=== PATIENT | male | born 1995 | race Caucasian/White ===

== ENCOUNTER 2017-01-04 15:16 | Emergency (ER) | payer OTHER ==
[~2017-01-04] VITALS: Wt 95.7 kg
[~2017-01-04 15:16] MED LIST: BACTROBAN OINT22 GM PO; CELEXA20 MG PO; CYCLOBENZAPRINE10 MG PO; FLEXERIL5 MG PO; HYDROCODONE BIT1 T11 PO; KEFLEX500 MG PO; LOFIBRA134 MG PO; MOTRIN800 MG PO; NAPROSYN500 MG PO; NEURONTIN300 MG PO; PEPCID20 MG PO; PREDNISONE50 MG PO; ZANAFLEX4 M2 PO
[2017-01-04 15:20] VITALS: BP 127/64
[2017-01-04] MEDS ORDERED: OXYCODONE5 M1 PO (15:23)
[2017-01-04] MEDS ORDERED: CELEXA10 MG PO (15:24)
[2017-01-04 15:47] LABS: BASO % 0.3 % (0.0-1.0); EOS # 0.1 10*3/uL (0.0-0.4); EOS % 1.3 % (1.0-4.0); HEMATOCRIT 42.6 % (42.0-52.0); HEMOGLOBIN 14.4 g/dl (14.0-18.0); LYMPH # 2.4 10*3/uL (1.3-4.4); LYMPH % 28.3 % (27.0-41.0); MEAN CORPUSCULAR HGB 28.4 pg (27.0-31.0); MEAN CORPUSCULAR HGB CONC 33.8 g/dl (33.0-37.0); MEAN PLATELET VOLUME 10.8 fl (9.6-12.3); MONO # 0.7 10*3/uL (0.1-1.0); NEUT # 5.3 10*3/uL (2.3-7.9); NEUT % 61.8 % (47.0-73.0); PLATELET COUNT AUTOMATED 232 10*3/uL (130-400); RED BLOOD COUNT 5.07 10*6/uL (4.50-5.90); RED CELL DISTRI WIDTH 13.2 % (0-14.5); WHITE BLOOD COUNT 8.6 10*3/uL (4.8-10.8)
[2017-01-04 15:58] LABS: BILIRUBIN 1+ (NEGATIVE); BLOOD NEGATIVE (NEGATIVE); CLARITY SL CLOUDY (CLEAR); COLOR YELLOW (YELLOW); GLUCOSE NEGATIVE (NEGATIVE); KETONE TRACE (NEGATIVE); LEUKO ESTERASE NEGATIVE (NEGATIVE); NITRITE NEGATIVE (NEGATIVE); PH 5.5 (5.0-9.0); PROTEIN NEGATIVE (NEGATIVE); SPECIFIC GRAVITY 1.025 (1.005-1.030); UROBILINOGEN 0.2 E.U./dl (0.2-1.0)
[2017-01-04 16:04] LABS: ALBUMIN 3.9 gm/dl (3.1-4.5); ALKALINE PHOSPHATASE 104 U/L (45-117); BILIRUBIN, TOTAL 0.3 mg/dl (0.2-1.0); BUN 11 mg/dl (7-24); CARBON DIOXIDE 25 mmol/L (21-32); CHLORIDE 107 mmol/L (98-107); EST GLOM FILT AFRICAN AMERICAN > 60 ml/min; GLUCOSE 103 mg/dL (65-99); POTASSIUM 3.7 mmol/L (3.5-5.1); SGOT/AST 20 IU/L (3-35); SGPT/ALT 46 U/L (12-78); SODIUM 140 mmol/L (136-145); TOTAL PROTEIN 7.4 gm/dL (6.4-8.2)
[2017-01-04 16:07] LABS: BACTERIA 2+; EPITHELIAL CELLS 0-2; MUCOUS TRACE; RBC 0-2 rbc/hpf (0-2); URINE REFLEX COMMENT YES (NO)
[2017-01-04 16:15] LABS: URINE AMPHETAMINES < 1000 (1000ng/ml); URINE BARBITURATES < 200 (200ng/ml); URINE COCAINE < 300 (300ng/ml)
[2017-01-04] MEDS ORDERED: MEDROL DOSEPAK4 MG PO (17:03)
[2017-01-04] MEDS ORDERED: ZOFRAN ODT4 MG SL (17:06)
== END 2017-01-04 17:09 | disposition home or self-care (01) ==
LOC: ED 15:16
PROVIDERS: Physician Assistant
DX: M79.1 Myalgia (principal); R11.0 Nausea; Z79.899 Other long term (current) drug therapy

== ENCOUNTER 2019-07-11 13:12 | Inpatient (IN) | payer OTHER ==
[~2019-07-11] VITALS: Ht 182.8 cm; Wt 95.3 kg
[~2019-07-11 13:12] MED LIST changes: +MEDROL DOSEPAK4 MG PO; +OXYCODONE5 M1 PO; +ZOFRAN ODT4 MG SL
[2019-07-11 13:17] VITALS: BP 113/66
--- NOTE | 2019-07-11 14:10 | NUR ---
PT REPORTS TINGLING IN "MY WHOLE RIGHT ARM" AFTER DELTOID INJECTION OF TORADOL. INJECTION WAS PROVIDED IN CORRECT ANATOMICAL LOCATION FAR FROM ANY NERVES. WILL MONITOR THIS COMPLAINT.
[2019-07-11 14:28] LABS: BASO # 0.1 10*3/uL (0.0-0.1); BASO % 0.3 % (0.0-1.0); EOS # 0.1 10*3/uL (0.0-0.4); EOS % 0.8 % (1.0-4.0); HEMATOCRIT 41.4 % (42.0-52.0); HEMOGLOBIN 13.6 g/dl (14.0-18.0); LYMPH # 2.6 10*3/uL (1.3-4.4); LYMPH % 15.2 % (27.0-41.0); MEAN CELL VOLUME 86.4 fl (80.0-94.0); MEAN CORPUSCULAR HGB 28.4 pg (27.0-31.0); MEAN CORPUSCULAR HGB CONC 32.9 g/dl (33.0-37.0); MEAN PLATELET VOLUME 10.6 fl (9.6-12.3); MONO # 1.2 10*3/uL (0.1-1.0); MONO % 6.9 % (3.0-9.0); NEUT # 12.8 10*3/uL (2.3-7.9); NEUT % 75.9 % (47.0-73.0); PLATELET COUNT AUTOMATED 355 10*3/uL (130-400); RED BLOOD COUNT 4.79 10*6/uL (4.50-5.90); RED CELL DISTRI WIDTH 12.9 % (0-14.5); WHITE BLOOD COUNT 16.9 10*3/uL (4.8-10.8)
[2019-07-11 14:39] LABS: ACT PARTIAL THROMBO TIME 30.9 SECONDS (20.0-32.1)
[2019-07-11 14:47] LABS: ALBUMIN 3.6 gm/dl (3.1-4.5); ALKALINE PHOSPHATASE 136 U/L (45-117); BUN 12 mg/dl (7-24); CHLORIDE 103 mmol/L (98-107); CREATININE 0.95 mg/dL (0.70-1.30); LIPASE 57 U/L (73-393); POTASSIUM 3.7 mmol/L (3.5-5.1); SGOT/AST 16 IU/L (3-35); SGPT/ALT 46 U/L (12-78); SODIUM 137 mmol/L (136-145); TOTAL PROTEIN 8.2 gm/dL (6.4-8.2)
[2019-07-11 14:48] LABS: TROPONIN I < 0.015 ng/ml (<0.045)
[2019-07-11 14:54] LABS: BILIRUBIN NEGATIVE (NEGATIVE); BLOOD NEGATIVE (NEGATIVE); CLARITY CLOUDY (CLEAR); COLOR YELLOW (YELLOW); GLUCOSE NEGATIVE (NEGATIVE); KETONE NEGATIVE (NEGATIVE); LEUKO ESTERASE NEGATIVE (NEGATIVE); NITRITE NEGATIVE (NEGATIVE); PH 8.5 (5.0-9.0); SPECIFIC GRAVITY 1.015 (1.005-1.030); UROBILINOGEN 0.2 E.U./dl (0.2-1.0)
--- NOTE | 2019-07-11 16:40 | NUR ---
PT REPORTS MAJORITY OF PAIN HAS RESOLVED. AWAITING CT SCAN RESULTS.
--- NOTE | 2019-07-11 17:54 | NUR ---
PT MASKED UNTIL NEGATIVE AIRFLOW ROOM BECOMES AVAILIBLE.
--- NOTE | 2019-07-11 19:14 | NUR ---
NURSE TO NURSE REPORT GIVEN TO THIS RN.PT RESTING IN ROOM.NO SIGNS DISTRESS NOTED.
--- NOTE | 2019-07-11 19:20 | NUR ---
THIS RN ADVISED BY ARY SHIRLEY, DUE TO MASS FOUND DURING CT TESTING, PT MAY BE OF CONCERN FOR POSSIBLE TB.ARY ARANA HAS HAD PT WEARING MASK PRECAUTION.
--- NOTE | 2019-07-11 19:40 | NUR ---
DR UNGER AT BEDSIDE TO SPEAK WITH PT, ADVISED BY DOCTOR PT SHOULD BE PLACED IN NEGATIVE PRESSURE ROOM FOR ADMISSION UNTIL PT SEEN BY BRAKE SPECIALIST.SIGN PLACED ON PT DOOR.PT AWAITING ADMISSION.
[2019-07-11 19:44] VITALS: BP 122/66
--- NOTE | 2019-07-11 20:19 | NUR ---
ADVISED BY UNIT THEY WILL CALL WHEN PT ROOM IS AVAILABLE.
--- NOTE | 2019-07-11 20:52 | NUR ---
UNIT CALLED AND ADVISED PT ROOM IS AVAILABLE.
[2019-07-11 21:20] VITALS: BP 124/70
--- NOTE | 2019-07-11 21:20 | NUR ---
A 24, admitted to in negative air flow precautions, under the services of AJAY Dave DO with a diagnosis of lung mass. Chief complaint is lower back pain along with shortness of breath. Patient arrived via stretcher from ER. Monitor applied. Initial assessment completed. Vital signs taken and recorded. AJAY DAVE DO notified of admission to the unit. Orders received. See assessment for past medical history, medications and allergies. Patient and/or family oriented to unit. [facility]. Clothing/patient valuable form completed. REGIS TORRES
[2019-07-11 21:25] VITALS: BP 113/65
[2019-07-11] MEDS ORDERED: TRAMADOL HCL50 MG PO (21:40)
[2019-07-11] MEDS ORDERED: ZANAFLEX4 M1 PO (21:41)
[2019-07-11] MEDS ORDERED: SEROQUEL50 MG PO (21:41)
[2019-07-11] MEDS ORDERED: ASPIRIN ADULT L81 M1 PO (21:42)
--- NOTE | 2019-07-11 21:43 | NUR ---
MEDICATION LIST REVIEWED WITH PATIENT.
--- NOTE | 2019-07-11 23:36 | NUR ---
SPOKE WITH DR CHOPRA REGARDING CONSULT ORDER.
[2019-07-12] VITALS: BP 126/68
--- NOTE | 2019-07-12 01:53 | NUR ---
ANSWERING SERVICE NOTIFIED OF CONSULT FOR DR. BEASLEY.
[2019-07-12 07:05] LABS: BASO # 0.1 10*3/uL (0.0-0.1); BASO % 0.4 % (0.0-1.0); EOS # 0.2 10*3/uL (0.0-0.4); EOS % 1.4 % (1.0-4.0); HEMATOCRIT 38.7 % (42.0-52.0); HEMOGLOBIN 12.5 g/dl (14.0-18.0); LYMPH # 2.5 10*3/uL (1.3-4.4); LYMPH % 18.4 % (27.0-41.0); MEAN CELL VOLUME 85.4 fl (80.0-94.0); MEAN CORPUSCULAR HGB 27.6 pg (27.0-31.0); MEAN CORPUSCULAR HGB CONC 32.3 g/dl (33.0-37.0); MEAN PLATELET VOLUME 10.5 fl (9.6-12.3); MONO # 0.9 10*3/uL (0.1-1.0); MONO % 6.5 % (3.0-9.0); NEUT # 9.7 10*3/uL (2.3-7.9); NEUT % 72.5 % (47.0-73.0); PLATELET COUNT AUTOMATED 311 10*3/uL (130-400); RED BLOOD COUNT 4.53 10*6/uL (4.50-5.90); RED CELL DISTRI WIDTH 12.9 % (0-14.5); WHITE BLOOD COUNT 13.3 10*3/uL (4.8-10.8)
[2019-07-12 07:20] LABS: BUN 13 mg/dl (7-24); CHLORIDE 107 mmol/L (98-107); CREATININE 1.08 mg/dL (0.70-1.30); POTASSIUM 3.4 mmol/L (3.5-5.1); SODIUM 140 mmol/L (136-145)
[2019-07-12 08:00] VITALS: BP 133/70
[2019-07-12 12:00] VITALS: BP 127/78
--- NOTE | 2019-07-12 14:11 | NUR ---
PT MEDICATED WITH NORCO FOR C/O HEADACHE.
[2019-07-12 16:00] VITALS: BP 132/78
--- NOTE | 2019-07-12 16:21 | NUR ---
PT MEDICATED WITH ZOFRAN FOR C/O NAUSEA.
[2019-07-12 16:43] LABS: HEMATOCRIT 38.6 % (42.0-52.0); HEMOGLOBIN 12.7 g/dl (14.0-18.0); MEAN CELL VOLUME 85.8 fl (80.0-94.0); MEAN CORPUSCULAR HGB 28.2 pg (27.0-31.0); MEAN CORPUSCULAR HGB CONC 32.9 g/dl (33.0-37.0); MEAN PLATELET VOLUME 10.5 fl (9.6-12.3); PLATELET COUNT AUTOMATED 325 10*3/uL (130-400); RED CELL DISTRI WIDTH 12.8 % (0-14.5); WHITE BLOOD COUNT 14.3 10*3/uL (4.8-10.8)
[2019-07-12 17:07] LABS: BASOPHILS 1 % (0-1); PLATELET SUFFICIENCY NORMAL (NORMAL); TOTAL CELLS COUNTED 100 #CELLS
[2019-07-12 20:00] VITALS: BP 115/74
[2019-07-13] VITALS: BP 109/73
[2019-07-13 06:31] LABS: BASO # 0.1 10*3/uL (0.0-0.1); BASO % 0.5 % (0.0-1.0); EOS # 0.2 10*3/uL (0.0-0.4); EOS % 1.5 % (1.0-4.0); HEMATOCRIT 40.6 % (42.0-52.0); HEMOGLOBIN 12.9 g/dl (14.0-18.0); LYMPH # 2.6 10*3/uL (1.3-4.4); LYMPH % 20.7 % (27.0-41.0); MEAN CELL VOLUME 87.3 fl (80.0-94.0); MEAN CORPUSCULAR HGB 27.7 pg (27.0-31.0); MEAN CORPUSCULAR HGB CONC 31.8 g/dl (33.0-37.0); MEAN PLATELET VOLUME 10.6 fl (9.6-12.3); MONO % 8.2 % (3.0-9.0); NEUT # 8.5 10*3/uL (2.3-7.9); NEUT % 68.2 % (47.0-73.0); PLATELET COUNT AUTOMATED 336 10*3/uL (130-400); RED BLOOD COUNT 4.65 10*6/uL (4.50-5.90); WHITE BLOOD COUNT 12.4 10*3/uL (4.8-10.8)
[2019-07-13 06:48] LABS: BUN 8 mg/dl (7-24); CHLORIDE 109 mmol/L (98-107); CREATININE 1.15 mg/dL (0.70-1.30); POTASSIUM 4.1 mmol/L (3.5-5.1); SODIUM 141 mmol/L (136-145)
[2019-07-13 08:00] VITALS: BP 125/72
[2019-07-13 12:00] VITALS: BP 136/77
[2019-07-13 16:00] VITALS: BP 129/78
--- NOTE | 2019-07-13 18:59 | NUR ---
NORCO GIVEN FOR C/O BACK PAIN. RATES 7/10 ON PAIN SCALE. WILL MONITOR.
[2019-07-13 20:00] VITALS: BP 102/64
[2019-07-14] VITALS: BP 95/55
[2019-07-14 06:37] LABS: BASO # 0.1 10*3/uL (0.0-0.1); BASO % 0.7 % (0.0-1.0); EOS # 0.2 10*3/uL (0.0-0.4); HEMOGLOBIN 12.9 g/dl (14.0-18.0); LYMPH # 3.2 10*3/uL (1.3-4.4); MEAN CELL VOLUME 85.7 fl (80.0-94.0); MEAN CORPUSCULAR HGB 27.6 pg (27.0-31.0); MEAN CORPUSCULAR HGB CONC 32.3 g/dl (33.0-37.0); MEAN PLATELET VOLUME 10.6 fl (9.6-12.3); MONO # 0.9 10*3/uL (0.1-1.0); MONO % 7.6 % (3.0-9.0); NEUT # 7.3 10*3/uL (2.3-7.9); NEUT % 61.6 % (47.0-73.0); PLATELET COUNT AUTOMATED 358 10*3/uL (130-400); RED BLOOD COUNT 4.67 10*6/uL (4.50-5.90); RED CELL DISTRI WIDTH 12.9 % (0-14.5); WHITE BLOOD COUNT 11.9 10*3/uL (4.8-10.8)
[2019-07-14 06:48] LABS: BUN 10 mg/dl (7-24); CHLORIDE 106 mmol/L (98-107); POTASSIUM 3.9 mmol/L (3.5-5.1); SODIUM 141 mmol/L (136-145)
--- NOTE | 2019-07-14 07:54 | NUR ---
24 HR chart check completed.
[2019-07-14 08:00] VITALS: BP 98/55
--- NOTE | 2019-07-14 09:00 | NUR ---
SLEEPING, AWAKENS EASILY. RESPIRATIONS EASY. LUNGS CLEAR. PULSE OX 98% RA. NON-PROD COUGH - AWARE OF NEED FOR SPUTUM SPECIMEN AND CUP REMAINS AT BEDSIDE. BRONCH 07/15 DISCUSSED. CALL LIGHT WITHIN REACH. NO VOICED COMPLAINTS
--- NOTE | 2019-07-14 09:25 | NUR ---
DR LUGO HERE TO ASSESS PATIENT AND DISCUSS PLAN OF CARE
--- NOTE | 2019-07-14 11:54 | NUR ---
REQUESTED AND RECEIVED NORCO PER PRN ORDER FOR COMPLAINTS OF BACK PAIN RATING A 6. CALL LIGHT WITHIN REACH. WILL MONITOR FOR EFFECTIVENESS
[2019-07-14 12:00] VITALS: BP 110/65
--- NOTE | 2019-07-14 13:00 | NUR ---
SITTING IN CHAIR. STATES RELIEF FROM EARLIER MEDS. CALL LIGHT WITHIN REACH. NO FURTHER VOICED COMPLAINTS
[2019-07-14 16:00] VITALS: BP 112/67
[2019-07-14 20:00] VITALS: BP 118/70
[2019-07-15] VITALS (8 sets, daily range): BP systolic 101–140; BP diastolic 62–81
[2019-07-15 06:43] LABS: BASO # 0.1 10*3/uL (0.0-0.1); BASO % 0.5 % (0.0-1.0); EOS # 0.3 10*3/uL (0.0-0.4); EOS % 2.4 % (1.0-4.0); HEMATOCRIT 41.2 % (42.0-52.0); HEMOGLOBIN 13.2 g/dl (14.0-18.0); LYMPH # 3.6 10*3/uL (1.3-4.4); LYMPH % 31.6 % (27.0-41.0); MEAN CELL VOLUME 86.7 fl (80.0-94.0); MEAN CORPUSCULAR HGB 27.8 pg (27.0-31.0); MEAN PLATELET VOLUME 10.6 fl (9.6-12.3); MONO # 0.8 10*3/uL (0.1-1.0); MONO % 7.2 % (3.0-9.0); NEUT # 6.5 10*3/uL (2.3-7.9); NEUT % 57.2 % (47.0-73.0); PLATELET COUNT AUTOMATED 355 10*3/uL (130-400); RED BLOOD COUNT 4.75 10*6/uL (4.50-5.90); WHITE BLOOD COUNT 11.3 10*3/uL (4.8-10.8)
[2019-07-15 06:48] LABS: BUN 10 mg/dl (7-24); CHLORIDE 106 mmol/L (98-107); CREATININE 1.16 mg/dL (0.70-1.30); POTASSIUM 4.1 mmol/L (3.5-5.1); SODIUM 140 mmol/L (136-145)
--- NOTE | 2019-07-15 07:15 | NUR ---
Patient resting quietly with no c/o discomfort. Respirations easy and regular. Vital signs stable. No overt distress. SAMMIE MARCUS
--- NOTE | 2019-07-15 08:36 | NUR ---
24 HR chart check completed.
--- NOTE | 2019-07-15 09:00 | NUR ---
Labor Employment Associate in to talk to patient. Patient states lives at home with girlfriend. There are few steps in the home. Physician: resident clinic Pharmacy: Home health services: none4 Patient's level of ADLs: MINIMAL ASSIST Patient has working utilities: all working DME: cane Follow-up physician's appointment after d/c: will be made by hospitalist nurse director upon discharge Does patient want to access PORTAL?: no Discharge plan discussed with patient, he states he lives at home with girlfriend and her family, he states he uses a cane for ambulation. he states he has been having some difficulty ambulating currently due to hip issues, discussed with him a short term nursing home for rehab and he declined, also discussed VNA with rehab and he also declined, stated his girlfriend is a certified nurses aid and cares for him at home, also educated him that he may need physical therapy also and he declines any VNA, case management will follow. IJEOMA CAMACHO
[2019-07-15 11:55] LABS: BF LYMPHOCYTES 1 %; BF MACROPHAGES 2 %; BF NEUTROPHILS 97 %
--- NOTE | 2019-07-15 13:46 | NUR ---
MEDICATED WITH PO TYLENOL ORDERED PER PT REQUEST FOR C/O HEADACHE.
--- NOTE | 2019-07-15 18:00 | NUR ---
MEDICATION EFFECTIVE FOR HEADACHE.
[2019-07-16] VITALS: BP 130/88
--- NOTE | 2019-07-16 00:29 | NUR ---
24 HR chart check completed.
--- NOTE | 2019-07-16 05:01 | NUR ---
Patient resting quietly with no c/o discomfort. Respirations easy and regular. Vital signs stable. No overt distress. ABISAI LACY
[2019-07-16 06:46] LABS: BASO # 0.1 10*3/uL (0.0-0.1); BASO % 0.5 % (0.0-1.0); EOS # 0.3 10*3/uL (0.0-0.4); EOS % 2.2 % (1.0-4.0); HEMATOCRIT 40.4 % (42.0-52.0); LYMPH # 3.2 10*3/uL (1.3-4.4); LYMPH % 27.8 % (27.0-41.0); MEAN CELL VOLUME 86.3 fl (80.0-94.0); MEAN CORPUSCULAR HGB 27.8 pg (27.0-31.0); MEAN CORPUSCULAR HGB CONC 32.2 g/dl (33.0-37.0); MEAN PLATELET VOLUME 10.4 fl (9.6-12.3); MONO # 0.7 10*3/uL (0.1-1.0); MONO % 6.1 % (3.0-9.0); NEUT # 7.2 10*3/uL (2.3-7.9); NEUT % 62.5 % (47.0-73.0); PLATELET COUNT AUTOMATED 351 10*3/uL (130-400); RED BLOOD COUNT 4.68 10*6/uL (4.50-5.90); RED CELL DISTRI WIDTH 13.2 % (0-14.5); WHITE BLOOD COUNT 11.6 10*3/uL (4.8-10.8)
[2019-07-16 07:10] LABS: BUN 10 mg/dl (7-24); CHLORIDE 108 mmol/L (98-107); CREATININE 1.08 mg/dL (0.70-1.30); POTASSIUM 3.9 mmol/L (3.5-5.1); SODIUM 140 mmol/L (136-145)
[2019-07-16 08:00] VITALS: BP 106/50
--- NOTE | 2019-07-16 09:00 | NUR ---
case management visits with patient, he states he will be returning home when medically stable and denies any home needs
--- NOTE | 2019-07-16 11:24 | NUR ---
pt back from lung biopsy right upper chest puncture site scant blood other lira intact. pt complians of no pain
[2019-07-16 12:00] VITALS: BP 96/53
--- NOTE | 2019-07-16 12:45 | NUR ---
TYLENOL GIVEN D/T PT COMPLAINING OF R SIDE SITE PAIN 12/05 SORE
--- NOTE | 2019-07-16 13:45 | NUR ---
PAIN MED EFFECTIVE PT SLEEPING RESTING COMFORTABLY PAIN 0/10
--- NOTE | 2019-07-16 13:50 | NUR ---
Dr Sanders notified of the inability to perform cytology sample from ct guided biopsy d/t lack of fluid in sample. Fungal was also not able to be obtained.
[2019-07-16 16:00] VITALS: BP 119/65
[2019-07-16 18:07] LABS: ACID FAST SPEC PROCESSING Concentration (.)
[2019-07-16 18:07] LABS: TB1 Ag VALUE 0.03 IU/mL (.)
[2019-07-16 18:07] LABS: TB1 Ag VALUE 0.03 IU/mL (.)
[2019-07-16 20:00] VITALS: BP 108/62
--- NOTE | 2019-07-16 22:10 | NUR ---
PATIENT GIVEN NORCO FOR POST OP CT GUIDED BIOPSY 01/04.
[2019-07-17] VITALS: BP 119/70
[2019-07-17 06:45] LABS: BASO # 0.1 10*3/uL (0.0-0.1); BASO % 0.5 % (0.0-1.0); EOS # 0.3 10*3/uL (0.0-0.4); EOS % 2.1 % (1.0-4.0); HEMOGLOBIN 13.1 g/dl (14.0-18.0); LYMPH # 2.8 10*3/uL (1.3-4.4); LYMPH % 22.2 % (27.0-41.0); MEAN CELL VOLUME 85.6 fl (80.0-94.0); MEAN CORPUSCULAR HGB 27.3 pg (27.0-31.0); MEAN PLATELET VOLUME 10.6 fl (9.6-12.3); MONO # 0.8 10*3/uL (0.1-1.0); MONO % 6.7 % (3.0-9.0); NEUT # 8.5 10*3/uL (2.3-7.9); NEUT % 67.6 % (47.0-73.0); PLATELET COUNT AUTOMATED 354 10*3/uL (130-400); RED BLOOD COUNT 4.79 10*6/uL (4.50-5.90); RED CELL DISTRI WIDTH 13.1 % (0-14.5); WHITE BLOOD COUNT 12.5 10*3/uL (4.8-10.8)
[2019-07-17 07:07] LABS: BUN 15 mg/dl (7-24); CHLORIDE 105 mmol/L (98-107); CREATININE 0.98 mg/dL (0.70-1.30); POTASSIUM 3.9 mmol/L (3.5-5.1); SODIUM 136 mmol/L (136-145)
[2019-07-17 08:00] VITALS: BP 128/60
--- NOTE | 2019-07-17 08:52 | NUR ---
NORCO 5/325 MG GIVEN FOR C/O PAIN TO RIGHT CHEST/BACK,02/04.
--- NOTE | 2019-07-17 09:00 | NUR ---
case management visits with patient, he will return home when medically stable and denies any home needs
--- NOTE | 2019-07-17 11:30 | NUR ---
SPOKE TO DR CUBA REGARDING PLAN OF CARE. PT C/O THAT "NO ONE IS TELLING HIM WHARS GOING ON". PER DR CUBA, AWAITING CXR RESULTS FROM THIS AM.WILL ROUND AND SPEAK TO PT AND SIGNIFICANT OTHER AT BEDSIDE REGARDING PLAN OF CARE. EDUCATION PROVIDED TO PT REGARDING THIS AND DAANIA SMOKING CESSATION.
[2019-07-17 12:00] VITALS: BP 122/76
--- NOTE | 2019-07-17 13:57 | NUR ---
Patient resting quietly with no c/o discomfort. Respirations easy and regular. Vital signs stable. No overt distress.Stable at this time.Significant other at bedside.Call light in reach. ANGELO RAZO
[2019-07-17 14:11] LABS: ACID FAST SPEC PROCESSING Tissue Grinding (.)
[2019-07-17] MEDS ORDERED: AUGMENTIN 875875 MG PO (14:49)
[2019-07-17 16:00] VITALS: BP 128/86
--- NOTE | 2019-07-17 16:00 | NUR ---
PT C/O "DR'S NOT COMMUNICATING WITH EACH OTHER " DR CUBA HAD ROUNDED AND SPOKE WITH PT. PER PT HE STATES "THE DR TOLD ME I WOULD GET TO GO HOME TODAY". PT ASKED TO SPEAK WITH EXTRA HAND AT THIS TIME. SANDY NOTIFIED.
--- NOTE | 2019-07-17 16:49 | NUR ---
DR LUGO WAS IN AND SPOKE TO PT AND FAMILY REGARDING PLAN OF CARE.
--- NOTE | 2019-07-17 18:21 | NUR ---
NORCO 5/325 MG GIVEN FOR C/O PAIN TO RIGHT CHEST/BACK,03/06.
[2019-07-17 20:00] VITALS: BP 121/74
[2019-07-18] VITALS (7 sets, daily range): BP systolic 64–126; BP diastolic 48–69
[2019-07-18 06:36] LABS: BASO # 0.1 10*3/uL (0.0-0.1); BASO % 0.4 % (0.0-1.0); EOS # 0.2 10*3/uL (0.0-0.4); EOS % 1.8 % (1.0-4.0); HEMATOCRIT 41.6 % (42.0-52.0); HEMOGLOBIN 13.6 g/dl (14.0-18.0); LYMPH # 2.8 10*3/uL (1.3-4.4); LYMPH % 23.2 % (27.0-41.0); MEAN CELL VOLUME 85.1 fl (80.0-94.0); MEAN CORPUSCULAR HGB 27.8 pg (27.0-31.0); MEAN CORPUSCULAR HGB CONC 32.7 g/dl (33.0-37.0); MEAN PLATELET VOLUME 10.5 fl (9.6-12.3); MONO # 0.8 10*3/uL (0.1-1.0); MONO % 6.5 % (3.0-9.0); NEUT % 67.1 % (47.0-73.0); PLATELET COUNT AUTOMATED 345 10*3/uL (130-400); RED BLOOD COUNT 4.89 10*6/uL (4.50-5.90); RED CELL DISTRI WIDTH 13.1 % (0-14.5); WHITE BLOOD COUNT 11.9 10*3/uL (4.8-10.8)
[2019-07-18 06:41] LABS: BUN 18 mg/dl (7-24); CHLORIDE 105 mmol/L (98-107); POTASSIUM 3.8 mmol/L (3.5-5.1); SODIUM 137 mmol/L (136-145)
--- NOTE | 2019-07-18 09:00 | NUR ---
case management visits with patient, he denies any home needs, possibly discharge to home today
--- NOTE | 2019-07-18 09:00 | NUR ---
SPOKE W/DR. CUBA RE CXR RESULTS AND DR. CHOPRA STATES PT CAN BE D/C TODAY AND PT REQUESTING SCRIPT FOR AUBURN.
--- NOTE | 2019-07-18 09:12 | NUR ---
PT MEDICATED W/NORCO FOR C/O RIGHT SIDE LUNG PAIN S/P BRONCH 10/07.
--- NOTE | 2019-07-18 10:10 | NUR ---
PT STANDING IN DOORWAY. C/O DIZZINESS, PROFUSELY DIAPHORETIC, PALE, AND EXPECTORATING BLOODY SPUTUM W/NOSE BLEED. PT ASSISTED TO RECLINER CHAIR. VS 64/48, 75, 97.9, 93% RA, BS 83. DR. ROSALES ON FLOOR AND NOTIFIED. STAT PORTABLE CXR ORDERED.
--- NOTE | 2019-07-18 10:20 | NUR ---
PT'S REPEAT BP 112/60. PT COLOR RETURNING AND DIZZINESS SUBSIDING.
--- NOTE | 2019-07-18 12:00 | NUR ---
DR. CHOPRA NOTIFIED OF PT'S REPEAT CXR AND PREVIOUS EPISODE. MONITOR AND DO NOT SEND HOME TODAY.
--- NOTE | 2019-07-18 12:19 | NUR ---
DR. ROSALES NOTIFIED DR. CHOPRA STATED NOT TO D/C PT TODAY.
[2019-07-19] VITALS: BP 107/60
[2019-07-19 06:50] LABS: BASO # 0.1 10*3/uL (0.0-0.1); BASO % 0.5 % (0.0-1.0); EOS # 0.4 10*3/uL (0.0-0.4); EOS % 3.1 % (1.0-4.0); HEMATOCRIT 40.8 % (42.0-52.0); HEMOGLOBIN 13.3 g/dl (14.0-18.0); LYMPH # 2.9 10*3/uL (1.3-4.4); MEAN CELL VOLUME 85.2 fl (80.0-94.0); MEAN CORPUSCULAR HGB 27.8 pg (27.0-31.0); MEAN CORPUSCULAR HGB CONC 32.6 g/dl (33.0-37.0); MEAN PLATELET VOLUME 10.3 fl (9.6-12.3); MONO # 0.7 10*3/uL (0.1-1.0); MONO % 5.5 % (3.0-9.0); NEUT # 8.4 10*3/uL (2.3-7.9); NEUT % 66.3 % (47.0-73.0); PLATELET COUNT AUTOMATED 317 10*3/uL (130-400); RED BLOOD COUNT 4.79 10*6/uL (4.50-5.90); RED CELL DISTRI WIDTH 13.1 % (0-14.5); WHITE BLOOD COUNT 12.6 10*3/uL (4.8-10.8)
[2019-07-19 07:26] LABS: BUN 18 mg/dl (7-24); CHLORIDE 106 mmol/L (98-107); CREATININE 1.01 mg/dL (0.70-1.30); POTASSIUM 3.9 mmol/L (3.5-5.1); SODIUM 137 mmol/L (136-145)
[2019-07-19 08:00] VITALS: BP 130/74
--- NOTE | 2019-07-19 08:57 | NUR ---
Shift chart check completed.
--- NOTE | 2019-07-19 09:00 | NUR ---
PT OFF FLOOR TO RADIOLOGY FOR CHEST XRAY
--- NOTE | 2019-07-19 09:00 | NUR ---
case management visits with patient, he will return home today and denies any hoem needs
--- NOTE | 2019-07-19 09:10 | NUR ---
PT BACK FROM RADIOLOGY. RESTING IN BED. CALL LIGHT WITHIN REACH.
--- NOTE | 2019-07-19 10:24 | NUR ---
SPOKE WITH DR CHOPRA REGARDING CHEST XRAY RESULTS. STATED TO LET THE REST OF THE TEAM KNOW PATIENT WAS ABLE TO BE DISCHARGED TODAY. ALSO TO FOLLOW UP WITH HIM IN 2 WEEKS.
--- NOTE | 2019-07-19 11:12 | NUR ---
The Discharge Plan/Instructions have been completed.
--- NOTE | 2019-07-19 11:12 | NUR ---
Discharge instructions reviewed with patient/family. Patient receptive and verbalizes understanding. Follow-up care arranged. Written instructions given to patient/family. MARTITA HORN
== END 2019-07-19 11:12 | disposition home or self-care (01) | DRG 166 ==
LOC: ED 13:12 → EDHOLD 19:32 → 4E 19:32
PROVIDERS: Family Medicine; Internal Medicine; Internal Medicine Critical Care Medicine; Physician Assistant; Student in an Organized Health Care Education/Training Program; ADMIT Internal Medicine
PROC: 0B9C8ZX Drainage of Right Upper Lung Lobe, Via Natural or Artificial Opening Endoscopic, Diagnostic (ICD-10-PCS; principal; 2019-07-15)
PROC: 0BBC8ZX Excision of Right Upper Lung Lobe, Via Natural or Artificial Opening Endoscopic, Diagnostic (ICD-10-PCS; 2019-07-16)
DX: J98.4 Other disorders of lung (principal); J85.1 Abscess of lung with pneumonia; E44.1 Mild protein-calorie malnutrition; R91.8 Other nonspecific abnormal finding of lung field; E66.3 Overweight; D72.829 Elevated white blood cell count, unspecified; D64.9 Anemia, unspecified; R73.9 Hyperglycemia, unspecified; E83.41 Hypermagnesemia; R74.8 Abnormal levels of other serum enzymes; G80.9 Cerebral palsy, unspecified; G62.9 Polyneuropathy, unspecified; F41.9 Anxiety disorder, unspecified; F32.9 Major depressive disorder, single episode, unspecified; F12.90 Cannabis use, unspecified, uncomplicated; E87.6 Hypokalemia; G89.29 Other chronic pain; M51.36 Other intervertebral disc degeneration, lumbar region; I95.9 Hypotension, unspecified; A15.0 Tuberculosis of lung; E66.9 Obesity, unspecified; J95.811 Postprocedural pneumothorax; R07.1 Chest pain on breathing; Z79.899 Other long term (current) drug therapy; Z79.82 Long term (current) use of aspirin; Z68.28 Body mass index [BMI] 28.0-28.9, adult

== ENCOUNTER 2021-02-21 16:55 | Emergency (ER) | payer OTHER ==
[~2021-02-21] VITALS: Ht 182.8 cm; Wt 88.9 kg
[~2021-02-21 16:55] MED LIST changes: +ASPIRIN ADULT L81 M1 PO; +AUGMENTIN 875875 MG PO; +SEROQUEL50 MG PO; +TRAMADOL HCL50 MG PO; +ZANAFLEX4 M1 PO
[2021-02-21 17:00] VITALS: BP 146/75
[2021-02-21] MEDS ORDERED: Motrin,Rufen800 MG PO (18:29)
== END 2021-02-21 18:28 | disposition home or self-care (01) ==
LOC: ED 16:55
DX: S86.911A Strain of unspecified muscle(s) and tendon(s) at lower leg level, right leg, initial encounter (principal); M17.11 Unilateral primary osteoarthritis, right knee; Z79.2 Long term (current) use of antibiotics; Z79.899 Other long term (current) drug therapy; Z79.82 Long term (current) use of aspirin; Z98.890 Other specified postprocedural states; X50.1XXA Overexertion from prolonged static or awkward postures, initial encounter; Y93.89 Activity, other specified; Y92.89 Other specified places as the place of occurrence of the external cause; Y99.8 Other external cause status

== ENCOUNTER 2021-07-05 03:47 | Emergency (ER) | payer OTHER ==
[~2021-07-05 03:47] MED LIST changes: +Motrin,Rufen800 MG PO
[2021-07-05 03:55] VITALS: BP 132/88
[2021-07-05 04:27] LABS: BASO # 0.1 10*3/uL (0.0-0.1); BASO % 0.6 % (0.0-1.0); EOS # 0.3 10*3/uL (0.0-0.4); EOS % 2.6 % (1.0-4.0); HEMATOCRIT 41.1 % (42.0-52.0); LYMPH # 3.5 10*3/uL (1.3-4.4); LYMPH % 35.1 % (27.0-41.0); MEAN CELL VOLUME 87.1 fl (80.0-94.0); MEAN CORPUSCULAR HGB 28.6 pg (27.0-31.0); MEAN CORPUSCULAR HGB CONC 32.8 g/dl (33.0-37.0); MEAN PLATELET VOLUME 10.7 fl (9.6-12.3); MONO # 0.7 10*3/uL (0.1-1.0); MONO % 6.6 % (3.0-9.0); NEUT # 5.5 10*3/uL (2.3-7.9); NEUT % 54.6 % (47.0-73.0); PLATELET COUNT AUTOMATED 241 10*3/uL (130-400); RED BLOOD COUNT 4.72 10*6/uL (4.50-5.90); RED CELL DISTRI WIDTH 13.5 % (0-14.5); WHITE BLOOD COUNT 10.1 10*3/uL (4.8-10.8)
[2021-07-05 04:44] LABS: ALBUMIN 3.6 gm/dl (3.1-4.5); ALKALINE PHOSPHATASE 96 U/L (45-117); BUN 15 mg/dl (7-24); CHLORIDE 111 mmol/L (98-107); CREATININE 0.92 mg/dL (0.70-1.30); POTASSIUM 3.8 mmol/L (3.5-5.1); SGOT/AST 13 IU/L (3-35); SGPT/ALT 23 U/L (12-78); SODIUM 143 mmol/L (136-145)
== END 2021-07-05 05:49 | disposition home or self-care (01) ==
LOC: ED 03:47
PROVIDERS: Internal Medicine
DX: R11.0 Nausea (principal); R42 Dizziness and giddiness; R25.1 Tremor, unspecified; Z79.2 Long term (current) use of antibiotics; Z79.899 Other long term (current) drug therapy; Z79.82 Long term (current) use of aspirin; Z98.890 Other specified postprocedural states; Z86.69 Personal history of other diseases of the nervous system and sense organs

== ENCOUNTER 2021-08-30 00:01 | Emergency (ER) | payer OTHER ==
[~2021-08-30] VITALS: Ht 182.8 cm; Wt 82.1 kg
[2021-08-30 00:03] VITALS: BP 120/70
== END 2021-08-30 02:00 | disposition home or self-care (01) ==
LOC: ED 00:01
DX: F41.9 Anxiety disorder, unspecified (principal)

== ENCOUNTER 2021-09-12 02:29 | Emergency (ER) | payer OTHER ==
[~2021-09-12] VITALS: Ht 182.8 cm; Wt 82.1 kg
[2021-09-12 03:25] VITALS: BP 103/61
== END 2021-09-12 04:05 | disposition home or self-care (01) ==
LOC: ED 02:29
DX: F41.9 Anxiety disorder, unspecified (principal); F32.9 Major depressive disorder, single episode, unspecified

== ENCOUNTER 2021-09-16 18:56 | Emergency (ER) | payer OTHER ==
[~2021-09-16] VITALS: Ht 182.8 cm; Wt 81.6 kg
[2021-09-16 19:27] LABS: BASO # 0.1 10*3/uL (0.0-0.1); BASO % 0.6 % (0.0-1.0); EOS # 0.3 10*3/uL (0.0-0.4); EOS % 3.1 % (1.0-4.0); HEMATOCRIT 38.9 % (42.0-52.0); LYMPH # 2.4 10*3/uL (1.3-4.4); MEAN CELL VOLUME 86.8 fl (80.0-94.0); MEAN CORPUSCULAR HGB 29.5 pg (27.0-31.0); MEAN CORPUSCULAR HGB CONC 33.9 g/dl (33.0-37.0); MEAN PLATELET VOLUME 10.5 fl (9.6-12.3); MONO # 0.6 10*3/uL (0.1-1.0); MONO % 7.5 % (3.0-9.0); NEUT % 59.4 % (47.0-73.0); PLATELET COUNT AUTOMATED 228 10*3/uL (130-400); RED BLOOD COUNT 4.48 10*6/uL (4.50-5.90); RED CELL DISTRI WIDTH 13.4 % (0-14.5); WHITE BLOOD COUNT 8.4 10*3/uL (4.8-10.8)
[2021-09-16 19:42] LABS: ALBUMIN 3.6 gm/dl (3.1-4.5); ALKALINE PHOSPHATASE 77 U/L (45-117); BUN 13 mg/dl (7-24); CHLORIDE 108 mmol/L (98-107); CPK 97 U/L (39-308); CREATININE 0.85 mg/dL (0.70-1.30); ETHYL ALCOHOL < 3.0 mg/dl (<3); LIPASE 64 U/L (73-393); POTASSIUM 3.7 mmol/L (3.5-5.1); SGOT/AST 13 IU/L (3-35); SGPT/ALT 23 U/L (12-78); SODIUM 139 mmol/L (136-145); TOTAL PROTEIN 6.8 gm/dL (6.4-8.2)
[2021-09-16 20:29] VITALS: BP 108/59
== END 2021-09-16 20:46 | disposition home or self-care (01) ==
LOC: ED 18:56
PROVIDERS: Emergency Medicine
DX: R55 Syncope and collapse (principal); F41.9 Anxiety disorder, unspecified; Z98.890 Other specified postprocedural states

== ENCOUNTER 2021-11-04 23:46 | Emergency (ER) | payer OTHER ==
[2021-11-04 23:59] VITALS: BP 128/82
== END 2021-11-05 04:08 | disposition home or self-care (01) ==
LOC: ED 23:46
DX: F41.9 Anxiety disorder, unspecified (principal)

== ENCOUNTER 2021-11-05 21:16 | Emergency (ER) | payer OTHER ==
[~2021-11-05] VITALS: Ht 182.8 cm; Wt 81.6 kg
[2021-11-05 21:49] VITALS: BP 136/40
== END 2021-11-05 23:07 | disposition home or self-care (01) ==
LOC: ED 21:16
DX: R10.9 Unspecified abdominal pain (principal); R51.9 Headache, unspecified; F41.9 Anxiety disorder, unspecified

== ENCOUNTER 2022-01-24 05:19 | Emergency (ER) | payer OTHER ==
[~2022-01-24] VITALS: Ht 182.8 cm; Wt 83.0 kg
[2022-01-24 05:20] VITALS: BP 98/53
== END 2022-01-24 07:04 | disposition home or self-care (01) ==
LOC: ED 05:19
DX: F41.9 Anxiety disorder, unspecified (principal); Z98.890 Other specified postprocedural states

== ENCOUNTER 2022-06-03 12:54 | Emergency (ER) | payer OTHER ==
[~2022-06-03] VITALS: Ht 182.8 cm; Wt 78.0 kg
[2022-06-03 13:07] VITALS: BP 119/74
== END 2022-06-03 15:45 | disposition left against medical advice (07) ==
LOC: ED 12:54
DX: M25.512 Pain in left shoulder (principal); Z53.21 Procedure and treatment not carried out due to patient leaving prior to being seen by health care provider; V19.88XA Pedal cyclist (driver) (passenger) injured in other specified transport accidents, initial encounter; Y93.55 Activity, bike riding; Y92.238 Other place in hospital as the place of occurrence of the external cause; Y99.9 Unspecified external cause status

== ENCOUNTER 2022-07-10 04:01 | Emergency (ER) | payer OTHER ==
[~2022-07-10] VITALS: Ht 182.8 cm; Wt 76.7 kg
[2022-07-10 04:04] VITALS: BP 108/62
== END 2022-07-10 04:52 | disposition home or self-care (01) ==
LOC: ED 04:01
DX: F41.9 Anxiety disorder, unspecified (principal); Z98.890 Other specified postprocedural states

== ENCOUNTER 2022-11-23 18:00 | Emergency (ER) | payer OTHER ==
[2022-11-23 18:25] LABS: BASO % 0.5 % (0.0-1.0); EOS # 0.3 10*3/uL (0.0-0.4); EOS % 3.2 % (1.0-4.0); HEMATOCRIT 42.7 % (42.0-52.0); LYMPH # 2.8 10*3/uL (1.3-4.4); LYMPH % 36.6 % (27.0-41.0); MEAN CELL VOLUME 87.1 fl (80.0-94.0); MEAN CORPUSCULAR HGB CONC 33.3 g/dl (33.0-37.0); MEAN PLATELET VOLUME 10.6 fl (9.6-12.3); MONO # 0.6 10*3/uL (0.1-1.0); MONO % 7.7 % (3.0-9.0); NEUT % 51.9 % (47.0-73.0); PLATELET COUNT AUTOMATED 213 10*3/uL (130-400); RED CELL DISTRI WIDTH 13.2 % (0-14.5); WHITE BLOOD COUNT 7.8 10*3/uL (4.8-10.8)
[2022-11-23 18:36] LABS: ACT PARTIAL THROMBO TIME 29.9 SECONDS (20.0-32.1); INTERNATIONAL NORM RATIO 1.2 (2.0-3.5)
[2022-11-23 18:47] LABS: ALKALINE PHOSPHATASE 83 U/L (46-116); BUN 9 mg/dl (9-23); CHLORIDE 106 mmol/L (98-107); LIPASE 27 U/L (12-53); POTASSIUM 3.7 mmol/L (3.4-5.1); SGPT/ALT 11 U/L (10-49); TOTAL PROTEIN 7.3 gm/dL (6.0-8.0)
[2022-11-23] MEDS ORDERED: METHOCARBAMOL500 M1 PO (19:47)
[2022-11-23] MEDS ORDERED: NAPROXEN250 MG PO (19:47)
== END 2022-11-23 20:00 | disposition home or self-care (01) ==
LOC: ED 18:00
PROVIDERS: Emergency Medicine
DX: G80.9 Cerebral palsy, unspecified (principal); F32.A Depression, unspecified; F41.9 Anxiety disorder, unspecified; F12.90 Cannabis use, unspecified, uncomplicated; Z98.890 Other specified postprocedural states

== ENCOUNTER 2022-11-24 21:46 | Emergency (ER) | payer OTHER ==
[~2022-11-24] VITALS: Ht 182.8 cm; Wt 81.6 kg
[~2022-11-24 21:46] MED LIST changes: +METHOCARBAMOL500 M1 PO; +NAPROXEN250 MG PO
[2022-11-24 21:48] VITALS: BP 94/55
[2022-11-25] MEDS ORDERED: LORAZEPAM0.5 M1 PO (00:08)
== END 2022-11-25 00:14 | disposition home or self-care (01) ==
LOC: ED 21:46
DX: S09.90XA Unspecified injury of head, initial encounter (principal); F41.0 Panic disorder [episodic paroxysmal anxiety]; M62.838 Other muscle spasm; F17.200 Nicotine dependence, unspecified, uncomplicated; Z98.890 Other specified postprocedural states; W18.39XA Other fall on same level, initial encounter; Y93.89 Activity, other specified; Y92.89 Other specified places as the place of occurrence of the external cause; Y99.8 Other external cause status

== ENCOUNTER 2023-03-08 02:15 | Emergency (ER) | payer OTHER ==
[~2023-03-08] VITALS: Ht 182.8 cm; Wt 74.8 kg
[~2023-03-08 02:15] MED LIST changes: +LORAZEPAM0.5 M1 PO
[2023-03-08 02:55] LABS: BASO # 0.1 10*3/uL (0.0-0.1); BASO % 0.5 % (0.0-1.0); EOS # 0.4 10*3/uL (0.0-0.4); EOS % 3.1 % (1.0-4.0); HEMATOCRIT 43.9 % (42.0-52.0); LYMPH # 3.3 10*3/uL (1.3-4.4); LYMPH % 25.1 % (27.0-41.0); MEAN CELL VOLUME 87.6 fl (80.0-94.0); MEAN CORPUSCULAR HGB 29.3 pg (27.0-31.0); MEAN CORPUSCULAR HGB CONC 33.5 g/dl (33.0-37.0); MEAN PLATELET VOLUME 10.2 fl (9.6-12.3); MONO % 7.5 % (3.0-9.0); NEUT # 8.4 10*3/uL (2.3-7.9); NEUT % 63.3 % (47.0-73.0); PLATELET COUNT AUTOMATED 232 10*3/uL (130-400); RED BLOOD COUNT 5.01 10*6/uL (4.50-5.90); RED CELL DISTRI WIDTH 13.3 % (0-14.5); WHITE BLOOD COUNT 13.2 10*3/uL (4.8-10.8)
[2023-03-08 03:04] LABS: BILIRUBIN Negative (Negative); BLOOD Negative (Negative); CLARITY Clear (Clear); COLOR Yellow (Yellow); GLUCOSE Negative (Negative); KETONE Negative (Negative); LEUKO ESTERASE Negative (Negative); NITRITE Negative (Negative); PH 5.5 (4.5-8.0)
[2023-03-08 03:07] LABS: ACT PARTIAL THROMBO TIME 27.5 SECONDS (20.0-32.1)
[2023-03-08 03:14] LABS: URINE AMPHETAMINES Negative (1000ng/ml); URINE BARBITURATES Negative (200ng/ml); URINE BENZODIAZEPINES Negative (200ng/ml); URINE CANNABINOIDS (THC) Positive (50ng/ml); URINE COCAINE Negative (300ng/ml); URINE METHADONE Negative (300ng/ml); URINE OPIATES Negative (300ng/ml); URINE PHENCYCLIDINE Negative (25ng/ml)
[2023-03-08 03:15] LABS: ALKALINE PHOSPHATASE 102 U/L (46-116); BUN 14 mg/dl (9-23); CHLORIDE 108 mmol/L (98-107); CPK 143 U/L (34-171); LIPASE 29 U/L (12-53); POTASSIUM 3.9 mmol/L (3.4-5.1); SGPT/ALT 15 U/L (10-49); TOTAL PROTEIN 7.5 gm/dL (6.0-8.0)
[2023-03-08 08:35] VITALS: BP 121/85
== END 2023-03-08 10:09 | disposition home or self-care (01) ==
LOC: ED 02:15
PROVIDERS: Internal Medicine
DX: F43.20 Adjustment disorder, unspecified (principal); F41.9 Anxiety disorder, unspecified; Z79.899 Other long term (current) drug therapy; Z79.82 Long term (current) use of aspirin; Z98.890 Other specified postprocedural states

== ENCOUNTER 2023-05-03 04:20 | Emergency (ER) | payer OTHER ==
[~2023-05-03] VITALS: Ht 182.8 cm; Wt 74.8 kg
[2023-05-03] MEDS ORDERED: BUSPAR5 MG PO (04:24)
[2023-05-03] MEDS ORDERED: FLUOXETINE HYDR20 M1 PO (04:25)
[2023-05-03 05:23] LABS: ACT PARTIAL THROMBO TIME 28.2 SECONDS (20.0-32.1)
[2023-05-03 05:26] LABS: ALKALINE PHOSPHATASE 73 U/L (46-116); BUN 16 mg/dl (9-23); CHLORIDE 105 mmol/L (98-107); LIPASE 34 U/L (12-53); POTASSIUM 3.8 mmol/L (3.4-5.1); SGPT/ALT 45 U/L (10-49)
[2023-05-03 05:55] LABS: BASO % 0.5 % (0.0-1.0); EOS # 0.3 10*3/uL (0.0-0.4); EOS % 3.8 % (1.0-4.0); HEMATOCRIT 42.3 % (42.0-52.0); LYMPH # 2.3 10*3/uL (1.3-4.4); LYMPH % 31.5 % (27.0-41.0); MEAN CELL VOLUME 86.2 fl (80.0-94.0); MEAN CORPUSCULAR HGB 29.5 pg (27.0-31.0); MEAN CORPUSCULAR HGB CONC 34.3 g/dl (33.0-37.0); MEAN PLATELET VOLUME 10.9 fl (9.6-12.3); MONO # 0.5 10*3/uL (0.1-1.0); PLATELET COUNT AUTOMATED 194 10*3/uL (130-400); RED BLOOD COUNT 4.91 10*6/uL (4.50-5.90); RED CELL DISTRI WIDTH 13.2 % (0-14.5); WHITE BLOOD COUNT 7.3 10*3/uL (4.8-10.8)
== END 2023-05-03 06:13 | disposition home or self-care (01) ==
LOC: ED 04:20
PROVIDERS: Internal Medicine
DX: F41.9 Anxiety disorder, unspecified (principal); R06.02 Shortness of breath; F32.A Depression, unspecified; Z98.890 Other specified postprocedural states; F12.90 Cannabis use, unspecified, uncomplicated

== ENCOUNTER 2023-05-13 01:53 | Emergency (ER) | payer OTHER ==
[~2023-05-13] VITALS: Wt 85.4 kg
[~2023-05-13 01:53] MED LIST changes: +BUSPAR5 MG PO; +FLUOXETINE HYDR20 M1 PO
[2023-05-13 01:56] VITALS: BP 108/57
[2023-05-13 02:16] LABS: BASO # 0.1 10*3/uL (0.0-0.1); BASO % 0.7 % (0.0-1.0); EOS # 0.3 10*3/uL (0.0-0.4); EOS % 2.4 % (1.0-4.0); LYMPH # 3.1 10*3/uL (1.3-4.4); LYMPH % 29.1 % (27.0-41.0); MEAN CELL VOLUME 86.2 fl (80.0-94.0); MEAN CORPUSCULAR HGB 29.8 pg (27.0-31.0); MEAN CORPUSCULAR HGB CONC 34.5 g/dl (33.0-37.0); MEAN PLATELET VOLUME 10.5 fl (9.6-12.3); MONO # 0.9 10*3/uL (0.1-1.0); MONO % 8.6 % (3.0-9.0); NEUT # 6.2 10*3/uL (2.3-7.9); NEUT % 58.4 % (47.0-73.0); PLATELET COUNT AUTOMATED 234 10*3/uL (130-400); RED BLOOD COUNT 4.87 10*6/uL (4.50-5.90); RED CELL DISTRI WIDTH 13.6 % (0-14.5); WHITE BLOOD COUNT 10.6 10*3/uL (4.8-10.8)
[2023-05-13 02:30] LABS: ACT PARTIAL THROMBO TIME 27.1 SECONDS (20.0-32.1)
[2023-05-13 02:43] LABS: ALKALINE PHOSPHATASE 98 U/L (46-116); BUN 12 mg/dl (9-23); CHLORIDE 107 mmol/L (98-107); LIPASE 32 U/L (12-53); SGPT/ALT 34 U/L (10-49); TOTAL PROTEIN 6.9 gm/dL (6.0-8.0)
[2023-05-13 02:44] LABS: ETHYL ALCOHOL < 3.0 mg/dl (<3)
[2023-05-13 05:20] LABS: BILIRUBIN Negative (Negative); BLOOD Negative (Negative); CLARITY Clear (Clear); COLOR Yellow (Yellow); GLUCOSE Negative (Negative); KETONE Trace (Negative); LEUKO ESTERASE Negative (Negative); NITRITE Negative (Negative)
[2023-05-13 05:26] LABS: URINE AMPHETAMINES Negative (1000ng/ml); URINE BARBITURATES Negative (200ng/ml); URINE BENZODIAZEPINES Negative (200ng/ml); URINE CANNABINOIDS (THC) Positive (50ng/ml); URINE COCAINE Negative (300ng/ml); URINE METHADONE Negative (300ng/ml); URINE OPIATES Negative (300ng/ml); URINE PHENCYCLIDINE Negative (25ng/ml)
== END 2023-05-13 04:43 | disposition home or self-care (01) ==
LOC: ED 01:53
PROVIDERS: Internal Medicine
DX: F41.9 Anxiety disorder, unspecified (principal); R41.82 Altered mental status, unspecified; F17.210 Nicotine dependence, cigarettes, uncomplicated; Z79.899 Other long term (current) drug therapy; Z98.890 Other specified postprocedural states

== ENCOUNTER 2023-06-14 20:27 | Emergency (ER) | payer OTHER ==
[~2023-06-14] VITALS: Ht 182.8 cm; Wt 74.8 kg
[2023-06-14 20:56] VITALS: BP 140/99
[2023-06-14] MEDS ORDERED: MIDOL CAPLET1 EACH PO (20:57)
== END 2023-06-15 01:04 | disposition left against medical advice (07) ==
LOC: ED 20:27
DX: M54.12 Radiculopathy, cervical region (principal); M25.511 Pain in right shoulder; R55 Syncope and collapse; R20.0 Anesthesia of skin; R53.1 Weakness; F32.A Depression, unspecified; F41.9 Anxiety disorder, unspecified; Z98.890 Other specified postprocedural states; F12.90 Cannabis use, unspecified, uncomplicated; Z87.891 Personal history of nicotine dependence

== ENCOUNTER 2025-03-30 19:48 | Emergency (ER) | payer OTHER ==
[~2025-03-30 19:48] MED LIST changes: +MIDOL CAPLET1 EACH PO
[2025-03-30] MEDS ORDERED: SODIUM CHLORIDE 0.9% 1,000 ML IV ONE (20:00)
[2025-03-30] MEDS ORDERED: Ondansetron Hydrochloride 4 MG/2 ML VIAL IV ONE (20:00)
[2025-03-30 20:15] LABS: BASO # 0.1 10*3/uL (0.0-0.1); BASO % 0.5 % (0.0-1.0); EOS # 0.1 10*3/uL (0.0-0.4); EOS % 1.0 % (1.0-4.0); MEAN CELL VOLUME 86.2 fl (80.0-94.0); MEAN CORPUSCULAR HGB 28.2 pg (27.0-31.0); MEAN PLATELET VOLUME 10.3 fl (9.6-12.3); MONO # 1.1 10*3/uL (0.1-1.0); MONO % 7.4 % (3.0-9.0); NEUT # 9.0 10*3/uL (2.3-7.9); NEUT % 62.5 % (47.0-73.0); NUCLEATED RED BLOOD CELL 0.0 % (0.0-0.0); NUCLEATED RED BLOOD CELL 0.0 10*3/uL (0.0-0.0); PLATELET COUNT AUTOMATED 296 10*3/uL (130-400); RED CELL DISTRI WIDTH 13.6 % (0-14.5)
[2025-03-30 20:34] LABS: BUN 14 mg/dl (9-23)
[2025-03-30 21:47] LABS: BILIRUBIN Negative (Negative); BLOOD 1+ (Negative); CLARITY Clear (Clear); COLOR Dark Yellow (Yellow); KETONE 3+ (Negative); LEUKO ESTERASE Negative (Negative); NITRITE Negative (Negative); PH 5.5 (4.5-8.0); SPECIFIC GRAVITY >= 1.030 (1.001-1.030); UROBILINOGEN 1.0 E.U./dl (0.0-1.0)
[2025-03-30 21:57] LABS: EPITHELIAL CELLS 0-2; MUCOUS TRACE; WBC 0-2 wbc/hpf (0-5)
[2025-03-30 21:58] LABS: BACTERIA 1+
[2025-03-31 00:13] VITALS: BP 126/64
[2025-03-31] MEDS ORDERED: PERCOCET 5-3251 EACH PO (00:26)
[2025-03-31] MEDS ORDERED: Acetaminophen/Oxycodone 5 MG/325 MG TABLET PO ONE (00:30)
== END 2025-03-31 00:37 | disposition home or self-care (01) ==
LOC: ED 19:48
PROVIDERS: Emergency Medicine
DX: N20.0 Calculus of kidney (principal); F41.9 Anxiety disorder, unspecified; F12.90 Cannabis use, unspecified, uncomplicated; Z98.890 Other specified postprocedural states